=== PATIENT | male | born 1965 | race Caucasian/White ===

== ENCOUNTER 2019-03-27 14:00 | Inpatient (IN) | payer OTHER ==
[~2019-03-27] VITALS: Ht 170.2 cm; Wt 75.3 kg
[2019-03-27 14:07] VITALS: BP 175/105
[2019-03-27 14:27] LABS: ABSOLUTE NEUTROPHILS 12.3 thou/uL (1.4-8.2); BASOPHILS 0.3 % (0.0-2.0); EOSINOPHILS 1.2 % (0.0-3.0); HEMATOCRIT 55.1 % (42.0-52.0); HEMOGLOBIN 18.1 gm/dL (14.0-18.0); LYMPHOCYTES 13.8 % (24.0-44.0); MCH 28.6 pg (26.0-34.0); MCHC 32.8 g/dL (28.0-37.0); MONOCYTES 7.2 % (1.0-8.0); PLATELET COUNT 398 thou/uL (150-400); POLYS 77.5 % (36.0-66.0); RBC 6.34 mil/uL (4.50-6.00); RDW 15.1 % (10.5-14.5); WBC 15.9 thou/uL (4.0-11.0)
[2019-03-27 14:37] LABS: ANION GAP 12 mmol/L (7-16); BUN 36 mg/dL (7-18); CALCIUM 10.2 mg/dL (8.5-10.1); CHLORIDE 97 mmol/L (98-107); CO2 26 mmol/L (21-32); CREATININE 2.4 mg/dL (0.7-1.3); GLUCOSE 135 mg/dL (74-106); POTASSIUM 4.1 mmol/L (3.5-5.1); SODIUM 135 mmol/L (136-145)
[2019-03-27 14:48] LABS: ALBUMIN 4.2 g/dL (3.4-5.0); LIPASE 175 U/L (73-393); SGOT 19 U/L (15-37); SGPT 27 U/L (30-65); TOTAL BILIRUBIN 1.1 mg/dL (<0.1-1.0); TOTAL PROTEIN 8.9 g/dL (6.4-8.2); TROPONIN-I <0.06 ng/mL (<0.06)
--- NOTE | 2019-03-27 16:13 | NUR ---
ERIN LOPEZ - OF PATIENT - CONTACT #: [id number] OR [id number]
[2019-03-28 00:02] VITALS: BP 147/97
--- NOTE | 2019-03-28 01:20 | NUR ---
PATIENT WAS A NEW ADMISSION TO THE UNIT THIS SHIFT. HE ARRIVED VIA CART FROM THE ER AND WAS ABLE TO AMBULATE TO THE BED WITH ASSISTANCE INCIDENT FREE. PATIENT IS FULLY ALERT AND ORIENTED AND ABLE TO CALL APPROPRIATELY FOR NEEDS. NG TUBE TO INTERMITTENT SUCTION. PATIENT COMPLAINS OF ABDOMINAL PAIN AND NAUSEA WHICH NURSE IS TREATING. ADMISSION TO BE COMPLETED BY NURSE WITH CARE PLAN ACTIVATED.
[2019-03-28 05:20] LABS: ABSOLUTE NEUTROPHILS 6.4 thou/uL (1.4-8.2); BASOPHILS 0.5 % (0.0-2.0); HEMATOCRIT 44.2 % (42.0-52.0); LYMPHOCYTES 19.1 % (24.0-44.0); MCH 28.4 pg (26.0-34.0); MCHC 32.3 g/dL (28.0-37.0); MCV 87.8 fL (80.0-100.0); MONOCYTES 9.6 % (1.0-8.0); POLYS 67.8 % (36.0-66.0); RBC 5.04 mil/uL (4.50-6.00); RDW 15.1 % (10.5-14.5); WBC 9.4 thou/uL (4.0-11.0)
[2019-03-28 05:27] VITALS: BP 144/94
[2019-03-28 05:32] LABS: CREATININE 1.9 mg/dL (0.7-1.3); MAGNESIUM 1.6 mg/dL (1.8-2.4); POTASSIUM 3.9 mmol/L (3.5-5.1)
[2019-03-28 05:59] LABS: HEMOGLOBIN 14.3 gm/dL (14.0-18.0); PLATELET COUNT 289 thou/uL (150-400)
[2019-03-28 06:12] LABS: CALCIUM 8.2 mg/dL (8.5-10.1)
[2019-03-28 07:33] VITALS: BP 130/90
--- NOTE | 2019-03-28 08:39 | EKG ---
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 : 1965 Requested By: Alexandra Kaminski Order Number: [id number] MD: Travis Lam Measurements Intervals [place] Rate: 111 P: 74 NE: 137 QRS: 39 QRSD: 125 T: 161 QT: 332 QTc: 451 Interpretive Statements Sinus tachycardia Abnormal T, consider ischemia, lateral leads Baseline wander in lead(s) V2 No previous ECG available for comparison Electronically Signed On 03-28-2019 8:39:37 CDT by Travis Lam [email or web address] <ELECTRONICALLY SIGNED> By: Travis Lam MD, [facility] 03/28/19 0839 1449 1449 Travis Lam MD, FACC /EPI
[2019-03-28 09:44] LABS: HEMATOCRIT 43.9 % (42.0-52.0); HEMOGLOBIN 14.4 gm/dL (14.0-18.0)
--- NOTE | 2019-03-28 12:34 | NUR ---
INITIAL ASSESSMENT: SW reviewed chart and spoke with nursing and attending physician. Pt was admitted from home due to ileus. Pt currently has an NG tube in place. SW met with pt at bedside. Introduced role of SW. Pt is alert/orientated x 4. Pt reports he lives at home with his . Prior to admission, pt was independent with ADLs. No use of DME. No hx of services or post-acute placement. Pt does not currently have a PCP. SW offered to provide info for PCP. Pt states that his is working on finding him one. Plan is for pt to discharge home when medically stable. SW is following to assist as needed with discharge planning.
[2019-03-28 15:18] LABS: URINE BILIRUBIN NEGATIVE (Negative); URINE BLOOD NEGATIVE (Negative); URINE CLARITY CLEAR; URINE COLOR YELLOW; URINE GLUCOSE-RANDOM* NEGATIVE (Negative); URINE KETONES NEGATIVE (Negative); URINE LEUKOCYTES-REFLEX NEGATIVE (Negative); URINE NITRITE-REFLEX NEGATIVE (Negative); URINE PROTEIN (DIPSTICK) NEGATIVE (Negative); URINE UROBILINOGEN 0.2 E.U./dl (0.2-1.0)
[2019-03-28 15:24] VITALS: BP 143/90
--- NOTE | 2019-03-28 19:37 | NUR ---
Assumed care approx. 0700 this AM. Patient agitated and anxious much of the shift with intermittent panic attacks due to the NG tube. 200 total output before NG was clamped per orders from Dr. Al. Orders to clamp and check residual in 6 hours and if less than <300 ml then to DC as long as no vomiting. Dr. Al was paged by this RN at the 6 hour venus to confirm the order once more before discontinuing the NG. Dr. Al stated to go ahead and DC the NG, and let the patient have clear liquids. NG dc'd at 1710. Pt has been since then been much less anxious, and tolerating the clear liquids with no complaints of pain, nausea or vomiting. Fentanyl 50 mcg given PRN along with Zofran IV for nausea this AM and afternoon. Pt seems to be doing much better at shift change, and is requesting to shower before bed. Patient progressing toward plan of care goals at this time.
[2019-03-28 21:10] VITALS: BP 142/83
[2019-03-29 04:50] VITALS: BP 141/93
--- NOTE | 2019-03-29 05:07 | NUR ---
PT IS STANDBY ASSIST. PT ALSO TOOK SHOWER THIS EVENING. PT HAS COMPLAINTS OF THE IV AND WANTS TO BE TAKEN OFF. EDUCATED PT ABOUT NEED FOR IVPB ANTIBIOTICS AND FLUIDS. PT REMOVED BOTH IV ACCESSES AND STATES, "THEY CAME OUT WHEN I ROLLED IN THE BED." PT SUPPOSED TO BE ON CLEAR LIQUID DIET, BUT DURING ROUNDS PT EATING WHOLE FOOD THAT WAS BROUGHT IN. DISCUSSED THIS WITH PT AND HE SAID, "HE WAS HUNGRY." NON COMPLIANCE BEHAVIOR. WILL DISCUSS THIS WITH AM NURSE ON HOW TO PROCEED WITH IV SITUATION. VSS AND TELE MONITOR SHOWS NSR.
[2019-03-29 07:29] VITALS: BP 139/79
[2019-03-29 09:10] LABS: HEMATOCRIT 40.9 % (42.0-52.0); HEMOGLOBIN 13.1 gm/dL (14.0-18.0); MCH 28.3 pg (26.0-34.0); MCV 88.6 fL (80.0-100.0); RBC 4.62 mil/uL (4.50-6.00); RDW 15.2 % (10.5-14.5); WBC 8.1 thou/uL (4.0-11.0)
[2019-03-29 09:16] LABS: ALBUMIN 2.7 g/dL (3.4-5.0); CALCIUM 8.5 mg/dL (8.5-10.1); CREATININE 1.5 mg/dL (0.7-1.3); PHOSPHORUS 3.2 mg/dL (2.5-4.9); POTASSIUM 3.8 mmol/L (3.5-5.1)
--- NOTE | 2019-03-29 09:52 | NUR ---
PT REFUSES IV ACCESS. SURGERY START PT ON REGULAR DIET.
[2019-03-29] MEDS ORDERED: FLAGYL500 M1 PO (11:50)
[2019-03-29] MEDS ORDERED: CIPRO500 M1 PO (11:50)
[2019-03-29] MEDS ORDERED: PEPCID20 MG PO (11:51)
[2019-03-29 11:56] VITALS: BP 139/79
[2019-03-29 11:58] VITALS: BP 139/79
--- NOTE | 2019-03-29 12:04 | NUR ---
IV AND TELE DISCONTINUED. PT UNDERSTANDS ALL FOLLOW UP ORDERS.
--- NOTE | 2019-03-29 12:52 | NUR ---
DISCHARGE NOTE: SW reviewed chart and spoke with nursing and attending physician. Pt had NG tube removed and is tolerating regular diet. No surgical interventions identified. Pt is medically stable to discharge home. Pt's family to provide transportation home. No SW needs identified at this time, but is available to assist should needs arise.
--- NOTE | 2019-04-09 17:26 | HC ---
[facility] [place] [address] [place] [address] CONSULTATION Name: BILLY LOPEZ Room #: 360-[facility] IN M.R.#: [id number] Admission: 03/27/19 Attend Phys: Jazlyn Jacobson MD Discharge: 03/29/19 Date of : 61 Report #: [id number] THIS REPORT FOR: //name// CC: Jazlyn Jacobson FAM physician/PCP DATE OF SERVICE: 03/27/2019 CONSULTING PHYSICIAN: Dr. Al. REASON FOR CONSULTATION: Abdominal pain. ASSESSMENT: 1. Abdominal pain. 2. Ileus. 3. Nausea and vomiting. RECOMMENDATIONS: 1. Thank you for the consultation. I will follow along. 2. Recommended placement of NG tube due to the severe distention of the stomach on CT scan. The patient is quite miserable with the NG tube in the ER. I am not sure he is going to allow us to continue decompressing. 3. No surgical indication at this time. 4. Suspect possible gastroenteritis given his constellation of diffuse body aches, nausea, vomiting and diarrhea. We will follow closely and change plans if needed though. HISTORY OF PRESENT ILLNESS: The patient is a 53-year-old gentleman who developed diffuse body aches approximately 1 week ago. Beginning about 3-4 days ago, he reports that it got worse and developed into nausea, vomiting and diarrhea. This became quite severe. He could no longer tolerate it. So he presented to the ER. Reports that his abdominal pain is all over and cannot point into one area. He is unsure of any relieving or exacerbating features. He denies any recent sick contacts. PAST MEDICAL HISTORY: 1. COPD. 2. Emphysema. PAST SURGICAL HISTORY: Cholecystectomy. SOCIAL HISTORY: Smokes a half pack per day. Alcohol use denies. Recreational drug use denies. FAMILY HISTORY: Denies coagulopathy or malignancy. [facility] [address] [place] [address] CONSULTATION Name: BILLY LOPEZ Room #: 360-P DIS IN [facility].#: [id number] Admission: 03/27/19 Attend Phys: Jazlyn Jacobson MD Discharge: 03/29/19 Date of : 61 Report #: [id number] REVIEW OF SYSTEMS: CONSTITUTIONAL: No fever. No chills. HEENT: Denies blurring of vision, double vision, headaches, hearing loss, sinus drainage or sore throat. Denies blurring of vision, double vision, headaches, hearing loss, sinus drainage or sore throat. CARDIOVASCULAR: Denies chest pain, palpitations, orthopnea or paroxysmal nocturnal dyspnea. RESPIRATORY: Denies cough, wheezing, hemoptysis, or shortness of air. GASTROINTESTINAL: See above and below. GENITOURINARY: Denies dysuria or hematuria or kidney stones. No urinary frequency, urgency or incontinence. Denies dysuria or hematuria or kidney stones. No urinary frequency, urgency or incontinence. MUSCULOSKELETAL: No joint pain. No muscle pain. NEUROLOGICAL: Denies tremor, stroke or seizure. Denies tremor, stroke or seizure. HEMATOLOGIC / LYMPHATICS: Denies easy bruising, easy bleeding or enlarged lymph nodes. SKIN: No rash or ulceration. ENDOCRINE: No heat or cold intolerance PSYCHIATRIC: Denies depression, anxiety, or schizophrenia. PHYSICAL EXAMINATION: VITAL SIGNS: Temperature is 36.7, blood pressure is 175/105, pulse is 119, respiratory rate 17, pulse ox 97%. GENERAL: Alert and oriented, agitated due to NG tube. HEENT: PERRLA, EOMI, MMM, NCAT NECK: Supple. No LAD CARDIOVASCULAR: Regular rhythm and rate. Hemodynamically stable. Normal capillary refill. Regular rhythm and rate. Hemodynamically stable. Normal capillary refill. PULMONARY: Nonlabored. Clear to auscultation bilaterally ABDOMEN: Soft, mild tenderness diffusely. No guarding, rebound or rigidity. Mildly distended. EXTREMITIES: Calves soft, nontender, no edema. SKIN: No rashes or bruises. PSYCHIATRIC: Normal mood and affect Normal mood and affect NEUROLOGICAL: Grossly intact. CN II-XII grossly intact. MUSCULOSKELETAL: 5/5 strength in upper extremities and lower extremities bilaterally LYMPHATICS: No cervical, inguinal, or supraclavicular lymphadenopathy. LABORATORY DATA: Sodium 135, potassium 4.1, creatinine 2.4, lactic acid 2.2, total bilirubin 1.1, AST 19, ALT 27, alkaline phosphatase 108. Troponin less than 0.06, lipase 175. White blood count 15.9, hemoglobin 18.1, platelets 398. [address] [address] CONSULTATION Name: BILLY LOPEZ Room #: 360-P [facility] IN M.R.#: [id number] Admission: 03/27/19 Attend Phys: Jazlyn Jacobson MD Discharge: 03/29/19 Date of : 61 Report #: [id number] IMAGING: CT of the abdomen and pelvis. Impression: 1. Mildly dilated small bowel diffusely throughout the abdomen with no zone of transition. The colon is not dilated, though a few scattered air fluid levels are seen in the right colon. These findings likely represent diffuse ileus. Distal small-bowel obstruction is felt less likely. 2. No signs of enteritis or colitis. 3. No abdominal abscess or fluid collection. 4. No renal or ureteral stone. No signs of appendicitis. 5. The gallbladder is small and slightly irregular, ultrasound could be obtained for further evaluation if indicated, though there is no gallbladder wall thickening to suggest cholecystitis. <ELECTRONICALLY SIGNED> By: Andrez Al MD 04/09/19 1726 04 20 Andrez Al MD /nt
== END 2019-03-29 12:22 | disposition home or self-care (01) | DRG 871 ==
LOC: ER 14:00 → EDBD 14:00 → 3W 16:41 → EROBS 16:41 → 3W 03-28 00:10
PROVIDERS: Nurse Practitioner; Nurse Practitioner Family; Surgery; ADMIT Hospitalist
DX: A41.9 Sepsis, unspecified organism (principal); N17.0 Acute kidney failure with tubular necrosis; K56.7 Ileus, unspecified; K92.0 Hematemesis; I16.0 Hypertensive urgency; J43.9 Emphysema, unspecified; F17.210 Nicotine dependence, cigarettes, uncomplicated; I10 Essential (primary) hypertension; E78.5 Hyperlipidemia, unspecified; Z90.49 Acquired absence of other specified parts of digestive tract; Z88.6 Allergy status to analgesic agent; Z71.6 Tobacco abuse counseling; K52.9 Noninfective gastroenteritis and colitis, unspecified
CPT/HCPCS: 10879

== ENCOUNTER 2020-02-21 14:21 | Inpatient (IN) | payer OTHER ==
[~2020-02-21] VITALS: Ht 170.2 cm; Wt 78.1 kg
[~2020-02-21 14:21] MED LIST: CIPRO500 M1 PO; FLAGYL500 M1 PO; PEPCID20 MG PO
[2020-02-21 14:22] VITALS: BP 145/99
[2020-02-21 16:21] LABS: ABSOLUTE NEUTROPHILS 5.4 thou/uL (1.4-8.2); BASOPHILS 0.7 % (0.0-2.0); HEMATOCRIT 40.1 % (42.0-52.0); HEMOGLOBIN 13.2 gm/dL (14.0-18.0); LYMPHOCYTES 25.2 % (24.0-44.0); MCH 29.1 pg (26.0-34.0); MONOCYTES 6.2 % (1.0-8.0); PLATELET COUNT 269 thou/uL (150-400); POLYS 65.9 % (36.0-66.0); RBC 4.56 mil/uL (4.50-6.00); RDW 15.3 % (10.5-14.5); WBC 8.2 thou/uL (4.0-11.0)
[2020-02-21 16:29] LABS: CALCIUM 8.4 mg/dL (8.5-10.1); CREATININE 1.1 mg/dL (0.7-1.3); POTASSIUM 3.6 mmol/L (3.5-5.1)
[2020-02-21 16:35] LABS: ALBUMIN 3.7 g/dL (3.4-5.0); TOTAL PROTEIN 7.3 g/dL (6.4-8.2)
[2020-02-21 20:53] VITALS: BP 180/100
[2020-02-21 20:57] LABS: BE(vivo) -2.9 mmol/L (-2 to +3); HCO3 21.1 mmol/L (22.0-26.0); PCO2 34.7 mmHg (35.0-45.0); PO2 93.1 mmHg (80.0-100.0); pH 7.402 (7.360-7.450); sO2 97.2 % (92.0-98.0)
[2020-02-21 21:57] VITALS: BP 174/117
[2020-02-21 22:29] VITALS: BP 163/116
[2020-02-21 22:59] VITALS: BP 166/117
[2020-02-22 04:25] VITALS: BP 156/106
[2020-02-22 05:18] LABS: HEMOGLOBIN 14.4 gm/dL (14.0-18.0); MCH 28.9 pg (26.0-34.0); MCHC 32.7 g/dL (28.0-37.0); MCV 88.5 fL (80.0-100.0); RBC 4.97 mil/uL (4.50-6.00); RDW 15.6 % (10.5-14.5)
[2020-02-22 05:31] LABS: CALCIUM 8.6 mg/dL (8.5-10.1); CREATININE 1.3 mg/dL (0.7-1.3); POTASSIUM 4.3 mmol/L (3.5-5.1)
--- NOTE | 2020-02-22 05:38 | NUR ---
Arrive from ER around 2220 on 2L/NC. He is tachypneic with O2 sat in the mid 90's . Reported shortness of breath with exertion. RT gave him tx. [employer]ER notified of elevated BP. Pt. stated he has not taken his BP med or any of his med in the last two years. called for an update and confirmed that pt. has not taken any of his meds and hoping that we can help him resume taking his meds when he gets discharged. COVID PCR negative. supervisor speech and [employer]ER notified. Afebrile. Pt. also informed that test came back negative. Cardiology consult called to feroz mcneill.
[2020-02-22 05:39] LABS: CHOLESTEROL 160 mg/dL (<200); HDL CHOLESTEROL 51 mg/dL (>40); LDL CHOLESTEROL 98 mg/dL (<100); TC:HDL 3.1 Ratio (Not establshd); TRIGLYCERIDE 55 mg/dL (<150); VLDL 11 mg/dL (<40)
[2020-02-22 05:51] LABS: SERUM ASSESSMENT Clear
[2020-02-22 07:55] VITALS: BP 153/107
[2020-02-22 11:41] VITALS: BP 136/89
--- NOTE | 2020-02-22 15:07 | NUR ---
ASSUMED CARE APPROX 0700. PT ALERT AND ORIENTED X4. ASSESSMENTS CHARTED AND VSS. PT ON 2LNC W/O SIGNS OF DISTRESS NOTED. HAS EPISODES OF SHORTNESS OF AIR AND RECOVERS QUICKLY. PT DENIES CHEST PAIN. PT DENIES ACUTE PAIN. SR TO ST ON TELE MONITOR. PT'S , ERIN, UPDATED ON STATUS. PT'S TONGUE SWELLING HAS GONE DOWN SUBSTANTIALLY. DIET RESUMED W/O SWALLOWING COMPLICATIONS. PT SLOWLY PROGRESSING TOWARDS PLAN OF CARE GOALS WILL CONTINUE TO MONITOR.
[2020-02-22 15:56] VITALS: BP 119/74
[2020-02-22 18:11] LABS: AMP/METHAMP POSITIVE (Negative); BARBITURATES Negative (Negative); BENZODIAZEPINES Negative (Negative); COCAINE Negative (Negative); METHADONE Negative (Negative); OPIATES Negative (Negative); PCP Negative (Negative)
--- NOTE | 2020-02-22 18:13 | NUR ---
PER IFEOMA ANDERSON: OK TO D/C ISOLATION.
[2020-02-22 20:25] VITALS: BP 120/81
[2020-02-23 04:28] VITALS: BP 137/85
--- NOTE | 2020-02-23 04:43 | NUR ---
Pt. slept well during the night. Maintaining O2 sat in the mid to upper 90's on 2L/NC. Denies any pain . Afebrile. Up ad cristina in room with steady gait. Weakness has gotten better per pt. as well as breathing . BP also has improved. Making progress towards care plan goals.
--- NOTE | 2020-02-23 07:51 | HC ---
[facility] [address] [address] CONSULTATION Name: BILLY LOPEZ Room #: 349-I ADM IN .R.#: [id number] Admission: 02/21/20 Attend Phys: Jazlyn Jacobson MD Discharge: Date of : 61 Report #: [id number] THIS REPORT FOR: cc: MUNIRA - No family physician/PCP MUNIRA - No family physician/PCP Valdo Butts MD ~ CC: Jazlyn LOMBARDO physician/PCP DATE OF SERVICE: 02/22/2020 CARDIOLOGY CONSULTATION INDICATIONS: Dyspnea and chest pain. HISTORY OF PRESENT ILLNESS: This is a 54-year-old gentleman with a history of COPD, hypertension, tobacco use and noncompliance, presenting to the ER with complaints of swollen tongue. It seems that he was stung by a bee and his tongue was swollen. Upon further questioning, he reported increased dyspnea over the past several days, but denies any fever or chills. He also reports substernal chest discomfort, occurs when he is excited or exerting himself. There is no history of nausea, vomiting or diarrhea. He apparently moved from [place] about a year ago and has not seen a physician. Previously, he was taking 2 blood pressure medications, which he has not taken in the past year. PAST MEDICAL HISTORY: COPD, hypertension, noncompliance. ALLERGIES: ____ causes vomiting. MEDICATIONS: None. SOCIAL HISTORY: Positive tobacco use, half a pack per day. FAMILY HISTORY: Negative for premature CAD. REVIEW OF SYSTEMS: A full 10-point review of systems performed. Only the pertinent positives and negatives are described in the HPI. PHYSICAL EXAMINATION: VITAL SIGNS: Blood pressure is 160/100, heart rate is 110 beats per minute. GENERAL APPEARANCE: This is a well-developed, well-nourished male in no acute distress. HEENT: Normocephalic, atraumatic. Oral mucosa moist. NECK: Supple. LUNGS: Diminished breath sounds diffusely, no crackles. CARDIAC: Regular rate and rhythm, S1, S2 positive. [facility] [address] [place] [address] CONSULTATION Name: [facility]ILL[facility]Z [facility] [id number] Admission: 02/21/20 Attend Phys: Jazlyn Jacobson MD Discharge: Date of : 61 Report #: [id number] ABDOMEN: Soft, nontender. EXTREMITIES: No cyanosis, no clubbing. ECG reveals sinus tachycardia, LVH with T-wave abnormalities in the lateral leads, rule out ischemia versus repolarization abnormality. LABORATORY VALUES: White count is 10, hemoglobin 14.4. Troponin 0.07. ASSESSMENT AND PLAN: 1. Chest pain syndrome with minimal troponin elevation. May be related to oxygen supply/demand mismatch. However, he has significant coronary artery disease risk factors and will need an ischemic evaluation. Obtain an echo once his COVID status has been completed. We will decide upon cardiac catheterization versus noninvasive stress testing. Avoid ASPIRIN with his history of allergies. 2. Chronic obstructive pulmonary disease/dyspnea, improved with inhalers. Rule out pneumonia. 3. Hypertension/uncontrolled due to noncompliance. Start medication including beta-rodrigo in view of tachycardia. 4. Tobacco use, complete smoking cessation is strongly advised. <ELECTRONICALLY SIGNED> By: Valdo Butts MD 02/23/20 0751 0834 1019 Valdo Butts MD /nt
[2020-02-23 08:26] VITALS: BP 128/75
--- NOTE | 2020-02-23 09:45 | NUR ---
assumed patient care at 0700. a/o x4. denies chest pain. received phone call from wanson that his moniotor off at 0855. RN WENT TO PATIENT ROOM MARCO WAS NOT IN ROOM. PATIENT ESCROWED BACK TO UNIT BY SECURITY. PATIENT STILL WANT GO HOME AFTER RN TOLD PATIENT HE WILL HAS TEST ON MONDAY. AMA SIGNED PATIENT LEFT UNIT AT 0920. DR MORGAN NOTIFIED.
--- NOTE | 2020-02-24 08:08 | EKG ---
[facility] [place] [address] [place] [address] ELECTROCARDIOGRAM REPORT Name: BILLY LOPEZ Room #: 349-I 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 <ELECTRONICALLY SIGNED> By: Haroon Milian MD, [facility] 02/24/20 0808 1630 29 Haroon Milian MD, [facility] /EPI
--- NOTE | 2020-02-24 08:10 | EKG ---
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 : 1965 Requested By: Kyle Gonzalez Order Number: [id number] MD: Haroon Milian Measurements Intervals [place] Rate: 116 P: 62 AK: 143 QRS: 26 QRSD: 95 T: 146 QT: 340 QTc: 473 Interpretive Statements Sinus tachycardia Probable left atrial enlargement Left ventricular hypertrophy Abnormal T, consider ischemia, lateral leads ST elevation, present on previous ECG Compared to ECG 02/21/2020 16:30:25 Possible ischemia now present T-wave abnormality still present Electronically Signed On 02-24-2020 8:10:17 CDT by Haroon Milian [email or web address] <ELECTRONICALLY SIGNED> By: Haroon Milian MD, [facility] 02/24/20 0810 35 35 Haroon Milian MD, [facility] /EPI
== END 2020-02-23 09:20 | disposition left against medical advice (07) | DRG 917 ==
LOC: ER 14:21 → EROBS 19:32 → 3W 22:21
PROVIDERS: Emergency Medicine; Hospitalist; Nurse Practitioner Family; ADMIT Hospitalist; ATTEND Hospitalist
DX: T63.441A Toxic effect of venom of bees, accidental (unintentional), initial encounter (principal); J96.21 Acute and chronic respiratory failure with hypoxia; J18.9 Pneumonia, unspecified organism; X58.XXXA Exposure to other specified factors, initial encounter; J43.9 Emphysema, unspecified; R79.89 Other specified abnormal findings of blood chemistry; I10 Essential (primary) hypertension; F17.210 Nicotine dependence, cigarettes, uncomplicated; Z20.828 Contact with and (suspected) exposure to other viral communicable diseases; Z90.49 Acquired absence of other specified parts of digestive tract; Y92.89 Other specified places as the place of occurrence of the external cause; Z91.14 Patient's other noncompliance with medication regimen; Z79.899 Other long term (current) drug therapy; Z88.8 Allergy status to other drugs, medicaments and biological substances
CPT/HCPCS: 10879